=== PATIENT | female | born 1935 | race Caucasian/White ===

== ENCOUNTER → 2016-11-19 | Outpatient (CLI) | payer MEDICARE, OTHER ==
[~2016-11-19] MED LIST: CALCIUM 600MG+D1 TAB PO; CALCIUM/VITAMIN1 CAP PO; CEPHALEXIN500 M1 PO; COLACE 100100 MG/CAP PO; CORDARONE200 MG/TAB PO; COUMADIN 22.5 MG/TAB PO; COUMADIN 3MG3 MG/TAB PO; COUMADIN 5MG5 MG/TAB PO; DEMADEX 20MG20 M1 PO; DOXYCYCLINE 10100 MG PO; ELIQUIS 2.5 PO; FENTANYL 50MCG TD; HCTZ 25MG TAB25 MG PO; K-TAB20; LASIX 20MG TABL20 MG PO; LASIX 40MG TABL40 MG PO; LINZESS145CAP PO; LOTENSIN40 MG PO; MYSOLINE 5050 MG/TAB PO; PRESERVISION1 SGL PO; TOPROL XL 25MG25 MG; TOPROL XL 25MG25 MG PO; TYLENOL 500MG500 MG PO; ULTRAM 50MG TAB50 MG PO
== END ==
LOC: WCC 11:24
DX: L03.115 Cellulitis of right lower limb (principal); L03.116 Cellulitis of left lower limb; I87.8 Other specified disorders of veins; L97.919 Non-pressure chronic ulcer of unspecified part of right lower leg with unspecified severity; L97.929 Non-pressure chronic ulcer of unspecified part of left lower leg with unspecified severity
CPT/HCPCS: 13919; 13973; A6199; G0463

== ENCOUNTER 2016-11-25 07:54 | Outpatient (CLI) | payer MEDICARE, OTHER ==
[~2016-11-25] VITALS: Ht 157.5 cm; Wt 86.4 kg
[2016-11-25] VITALS (8 sets, daily range): BP systolic 106–166; BP diastolic 31–96; PULSE 72–86; TEMP 98.4
[~2016-11-25 07:54] MED LIST changes: -CEPHALEXIN500 M1 PO; -LINZESS145CAP PO
[2016-11-25] MEDS ORDERED: CEPHALEXIN500 M1 PO (08:31)
[2016-11-25] MEDS ORDERED: LINZESS145CAP PO (08:32)
== END 2016-11-25 14:30 | disposition home or self-care (01) ==
LOC: EUO 07:54 → COL.VAS 08:00 → EUO 14:30
DX: I83.892 Varicose veins of left lower extremity with other complications (principal)
CPT/HCPCS: C1894; J2250; J3010; J3370; J7040; J7050; J7120

== ENCOUNTER → 2016-11-26 | Outpatient (CLI) | payer MEDICARE, OTHER ==
[~2016-11-26] MED LIST changes: +CEPHALEXIN500 M1 PO; +LINZESS145CAP PO
== END ==
LOC: WCC 10:15
DX: L97.221 Non-pressure chronic ulcer of left calf limited to breakdown of skin (principal); L03.116 Cellulitis of left lower limb
CPT/HCPCS: G0463

== ENCOUNTER → 2016-12-01 | Outpatient (CLI) | payer MEDICARE, OTHER | LOC: COL.VAS 12:53 | DX: Z09 Encounter for follow-up examination after completed treatment for conditions other than malignant neoplasm (principal); Z86.718 Personal history of other venous thrombosis and embolism ==